=== PATIENT | male | born 1995 | race Caucasian/White ===

== ENCOUNTER 2017-06-21 08:36 | Emergency (ER) | payer OTHER ==
[2017-06-21 08:48] VITALS: BP 117/73; PULSE 72; RESP 16; TEMP 97.5; O2SAT 94
[2017-06-21] MEDS ORDERED: PROPARACAINE 0.5% 15 ML OPHT DROP RTEYE ONE (08:51)
[2017-06-21] MEDS ORDERED: FLUORESCEIN SODIUM 1 MG STRIP OP ONE (08:52)
--- NOTE | 2017-06-21 09:12 | EDPHY ---
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 He was wearing full eye protective gear. He did irrigated. Since that time he has had just a little bit of irritation woke up with some matting in his eye this morning. Does not have the sensation of a foreign body in his eye. No significant pain. Did woken nose a lot small bubble in his eyes well. Does not wear contact lenses. No other injuries. He is up-to-date in his tetanus ROS: 10 point Review of Systems is negative except as noted in the HPI. PMH: Denies Social History: No smoking, no alcohol, no recreational drug use Family History: non-contributory Physical Exam: General: Awake, alert, no acute distress Eye Exam Visual Acuity: Intact EOM: Intact OU Visual Savage: Intact OU Pupil: Equal, round and reactive to light and accomodation OU External: Lids, lashes and margins normal there is a small amount of of yellowish matting his right lower eyelashes, eyelids everted, no foreign bodies noted Fundoscopy; Normal OU Slit Lamp; mild conjunctival injection Iris normal, Cornea normal, Anterior chambers clear without cells or flare, no hyphema, normal angles, there are no foreign bodies Fluorosceine exam: There are 2 punctate points of fluorescein uptake in the 4:00 position and the 7:00 position. - Personal History Current Tetanus/Diphtheria Vaccine: Unsure Current Tetanus Diphtheria and Acellular Pertussis (TDAP): Unsure - Medical/Surgical History Hx Asthma: Yes Hx Chronic Respiratory Disease: No Hx Diabetes: No Hx Cardiac Disease: No Hx Renal Disease: No Hx Cirrhosis: No Hx Alcoholism: No Hx HIV/AIDS: No Hx Splenectomy or Spleen Trauma: No Other PMH: Asthma. Tonsilectomy - Social History Smoking Status: Never smoked Constitutional: Initial Vital Signs Temperature (C) 36.4 C 06/21/17 08:45 Heart Rate 72 06/21/17 08:45 Respiratory Rate 16 06/21/17 08:45 Blood Pressure 117/73 06/21/17 08:45 O2 Sat (%) 94 06/21/17 08:45 O2 Delivery Mode Room Air Allergies/Adverse Reactions: No Known Allergies Allergy (Unverified 06/21/17 08:48) Home Medications: Medication Instructions Recorded Albuterol PRN 06/21/17 Erythromycin 0.5% 3.5 gm OP Q4 #1 opht.oint 06/21/17 Medical Decision Making ED Course/Re-evaluation: 19-year-old male status post metal foreign body in his eye yesterday. I do not see any foreign bodies today. There is a small area of worsening uptake. There are no restaurant. He does also have some matting with an early conjunctivitis. Will start him on erythromycin eye ointment, follow up with Ophthalmology for any concerns. Departure - Departure Disposition: Home, Routine, Self-Care Clinical Impression: Corneal abrasion, Acute conjunctivitis of right eye Condition: Good Instructions: Erythromycin (Into the eye), Corneal Abrasion (ED), Conjunctivitis (ED) Additional Instructions: Apply erythromycin eye ointment every 4 hours while awake for the next 3 days. Follow up with Ophthalmology in 2-3 days if symptoms have not improved. Return to the emergency department for increasing discharge from her eye, increasing pain, worsening vision, or any other concerns. Referrals: NONE *PRIMARY CARE P,. [Primary Care Provider] - As per Instructions Roddy Bowman MD [Medical Doctor] - As per Instructions Prescriptions: Erythromycin 0.5% 3.5 gm OP Q4 #1 opht.oint
[2017-06-21] MEDS ORDERED: ERYTHROMYCIN 0.5% 1 GM OPHT.OINT EACHEYE ONE (09:15)
== END 2017-06-21 09:30 | disposition home or self-care (01) ==
LOC: CED 08:36
DX: S05.01XA Injury of conjunctiva and corneal abrasion without foreign body, right eye, initial encounter (principal); H10.31 Unspecified acute conjunctivitis, right eye; J45.909 Unspecified asthma, uncomplicated; W31.1XXA Contact with metalworking machines, initial encounter; Y92.69 Other specified industrial and construction area as the place of occurrence of the external cause; Y99.0 Civilian activity done for income or pay; Y93.89 Activity, other specified